=== PATIENT | female | born 1935 | race Caucasian/White ===

== ENCOUNTER 2016-09-30 13:03 | Inpatient (IN) | payer MEDICARE ==
[2016-09-30] MEDS ORDERED: DIATRIZOATE MEGLMINE/SODIUM 30 ML BOTTLE PO ONE (13:21)
[2016-09-30 13:40] LABS: ABG Draw Site Left Radial; ALLEN'S TEST PASS; BEb 6.1 (+/- 2); TCO2 32.6 MMOL/L (23-27)
--- NOTE | 2016-09-30 13:41 | EDPRACDOC ---
- General Information Chief Complaint: Chest Pain Stated Complaint: CHEST PAIN Time Seen by Provider: 09/30/16 13:15 Information Source: Patient, Family Mode of Arrival: Car Home Medications: Home Medications Albuterol Sulfate [Proair Hfa] 2 puff INH Q4-6H PRN 02/25/16 Alprazolam [Xanax] 0.5 mg PO BID PRN 02/25/16 Losartan Potassium [Cozaar] 50 mg PO DAILY 02/25/16 Omeprazole [Prilosec] 20 mg PO BID 02/25/16 Furosemide [Lasix] 20 mg PO DAILY PRN 04/29/16 Apixaban [Eliquis] 5 mg PO BID 09/30/16 Oxycodone HCl/Acetaminophen [Percocet 10-325 mg Tablet] 1 each PO Q8H PRN Allergies/Adverse Reactions: Allergies Allergy/AdvReac Type Severity Reaction Status Date / Time No Known Drug Allergies Allergy Unknown Verified 09/30/16 13:09 - History of Present Illness Onset: YEST HPI: PT HAS BEEN C/O CP FOR THE PAST FEW DAYS. PT ALSO C/O ABD PAIN. SHE HAD A HERNIA REPAIR IN FEBRUARY OF 2016. THE PT SAID THAT WHEN SHE STANDS UP, HER HERNIA SURGICAL SITE GETS REALLY HARD AND PAINFUL. THE PT SAID THAT SHE SAW DR. AMBRIZ WHO WANTED PT TO GET A CT SCAN. Chest Pain Location: Reports: Substernal Pain Radiation: Reports: None Symptoms Occur: Reports: Suddenly Cardiac Risk Factors: Reports: Smoker, Hypertension Cardiac History of: Reports: [place] Pain Description: Reports: Sharp, Stabbing Pain Severity: Mild Pain Worsens With: Reports: Nothing Pain Improves With: Reports: Nothing Associated Signs and Symptoms: Reports: SOB ED Past Medical History - Patient Medical History Cardiac History: Reports: Hypertension Respiratory History: Reports: COPD, Emphysema (she has no shortness of breath and does heavy work), Pulmonary Embolism GI/ History: Reports: Gastroesophageal Reflux Musculoskeletal History: Reports: Arthritis, Osteoarthritis Psychological History: Reports: Anxiety. Denies: Depression, Substance Use Disorder Systemic History: Denies: Diabetes, Hypothyroidism Surgical History: Reports: Hysterectomy, Hernia Surgery (02/25/16 Left inquinal hernia repair), Other (LEFT HIP) - Family Medical History Reports: Hypertension (Father), Cancer (Sister X 2, brother (lung)), Stroke ( brother), Cardiac Disorders (Father). Denies: Diabetes - Social Medical History Smoking Status: Light tobacco smoker (less than 5/day) (smoked 1ppd up until February of 2016, then quit; occasional smokes 1-2 cig/week now) Social History: Denies: Methadone Use, Other Substance Use ETOH: None Substance Abuse: None Lives In: Home EDM Review of Systems - Review of Systems ROS Negative Except as Marked: Yes All systems reviewed and were negative except as marked Constitutional: Weakness Respiratory: Shortness of Breath Cardiovascular: Chest Pain Gastrointestinal: Pain - Physical Exam Constitutional: No apparent distress, Alert (Awake), Other (CACHECTIC) Oriented to: Time, Person, Place Last recorded Vital Signs: Last Vital Signs Temp 98.6 F 09/30/16 13:05 Pulse 92 09/30/16 13:05 Resp 20 09/30/16 13:05 BP 185/81 H 09/30/16 13:05 Pulse Ox 95 09/30/16 13:05 Oxygen Pulse Oxygen Saturation 95 O2 Device Oxygen Flow Rate Fraction of Inspired Oxygen ( FIO2) - HEENT Head: Normal ( normocephalic) Eye Exam: Normal (PERRL, EOMI, Sclera white) Oropharynx: Normal (Pharynx:Moist without exudate,Gums-no swelling) ENT EAC: Normal TMJ: Normal Nose: No Symptoms Reported (septum midline) Neck: Normal (FROM, trachea at midline) - Respiratory/Cardiovascular Respiratory: Wheezes Cardiovascular: Normal (RRR without murmur, gallop or rub) - GI Auscultation: Normal (NABS) Palpation: Normal (Soft,No rebound or guarding, non distended) Tenderness: Mild, LLQ Guidry's Sign: Negative - Musculoskeletal Back: Normal (Non-Tender) Extremities: Normal (Normal tone, Pulses 2+ No cyanosis or edema, FROM) - Integumentary Skin: Normal, Warm, Dry Lymphatics: Normal (no adenopathy) - Neurologic Memory Impaired: Normal Motor Function: Normal (Normal tone, Pulses 2+ No cyanosis or edema, FROM) Cranial Nerve: Normal (CN II-X11 intact sensation, strength 5/5) Cerebellar: Normal Mood Description: Normal Thought: Coherent Perception: Normal - Action ASA given in the ED: No Aspirin therapy held due to: Other-specify below* (NOT CARDIAC) - Results 09/30/16 13:30 09/30/16 13:30 - EKG EKG #1 EKG Time: 13:19 -: Yes EKG interpreted by me Rate: bpm: 86 [place]: Normal Rhythm: NSR Block: None Hypertrophy: None ST: Normal Comparison: 04/29/16 - Diagnostic Imaging Chest Image interpreted by: Radiologist 1. Decreased patchy atelectasis or minimal pneumonia at the right lateral lung base. 2. Poor inspiration with interval minimal patchy atelectasis or pneumonia at the left lateral lung base. Other Image interpreted by: Radiologist ct chest/abd/pelvis: Negative for pulmonary embolus. Emboli seen on the prior chest CT have resolved. New mildly angulated fracture through the midbody of the sternum. Multiple thoracic spine compression fractures and compression fractures at all levels the lumbar spine. A new mild compression fracture of the superior endplate of T7 and some progression of vertebral body height loss and T8, T9 and L3. 0.6 cm right lower lobe pulmonary nodule is new since the prior studies. If the patient is at high risk for bronchogenic carcinoma, follow-up chest CT at 6-12 months is recommended. If the patient is at low risk for bronchogenic carcinoma, follow-up chest CT at 12 months is recommended. This recommendation follows the consensus statement: Guidelines for Management of Small Pulmonary Nodules Detected on CT Scans: A Statement from the Fleischner Society as published in Radiology 2005;237:395-400. Small left pleural effusions seen on the prior examination is decreased in size. Atherosclerosis. Hiatal hernia. Body wall and mesenteric edema compatible with anasarca, unchanged. No change in pelvic prolapse. - Departure Yes I personally saw and evaluated the patient. Disposition: Admit IP To This Hospital Condition: Fair Final Diagnosis: Acute respiratory failure with hypoxia, Bilateral pneumonia, Failure to thrive , Sternal fracture, compression fractures of multiple levels, Tobacco abuse Instructions: Chest Pain (ED) Education/Counseling Given To: Patient, Family Member Education/Counseling Given Regarding: Diagnosis, Treatment Referrals: Erich Huston MD [Primary Care Provider] - One Week Prescriptions: No Action Alprazolam [Xanax] 0.5 mg PO BID PRN PRN Reason: Anxiety Albuterol Sulfate [Proair Hfa] 2 puff INH Q4-6H PRN PRN Reason: Shortness Of Breath Omeprazole [Prilosec] 20 mg PO BID Losartan Potassium [Cozaar] 50 mg PO DAILY Furosemide [Lasix] 20 mg PO DAILY PRN PRN Reason: Edema Oxycodone HCl/Acetaminophen [Percocet 10-325 mg Tablet] 1 each PO Q8H PRN PRN Reason: Pain Apixaban [Eliquis] 5 mg PO BID Decision to Admit Time: 15:58 Decision to admit date: 09/30/16 Decision to admit: from ED - Physician Consulted Hospitalist Provider Called: Jovi Esquivel
[2016-09-30 13:43] LABS: AUTOMATED BASOPHIL 0.5 % (0-2); AUTOMATED EOSINOPHIL 0.7 % (0-5); AUTOMATED LYMPH 22.8 % (17-44); AUTOMATED MONOCYTE 11.6 % (3-10); AUTOMATED NEUTROPHIL 64.4 % (45-76); MPV 7.6 fL (7.4-10.4)
[2016-09-30 13:57] LABS: BLOOD UREA NITROGEN 14 MG/DL (7-17); CALC CORRECTED 9.8 MG/DL (8.4-10.2); CALCIUM 9.4 MG/DL (8.4-10.2); CALCULATED OSMOLALITY 266 MOs/Kg (270-290); CHLORIDE 99 mEq/L (98-107); GLUCOSE 89 mg/dL (70-99); SODIUM LEVEL 138 mEq/L (137-146); TOTAL PROTEIN 6.1 G/DL (6.3-8.2)
[2016-09-30] MEDS ORDERED: Pharmacy Review for Metformin - IV Contrast Given SCH ×3 (14:00)
[2016-09-30 14:04] LABS: PARTIAL THROMB. TIME 25.6 SEC (22-35)
[2016-09-30] MEDS ORDERED: MORPHINE 4 MG/ML INJECTION IV ONE ×2 (14:17→16:19)
[2016-09-30] MEDS ORDERED: ONDANSETRON HCL 4 MG/2 ML VIAL IV ONE (14:17)
[2016-09-30 14:30] LABS: LEUKOCYTES/URINE NEG (NEGATIVE); NITRITE/URINE NEG (NEGATIVE); URINE OCCULT BLOOD 1+ (NEG/TRACE)
--- NOTE | 2016-09-30 15:10 | DIRPT ---
CLINICAL DATA: Chest pain for the past few days. Abdominal pain. EXAM: PORTABLE CHEST 1 VIEW COMPARISON: 05/19/2016. FINDINGS: A small amount of patchy opacity at the right lateral lung base is less prominent. Decreased depth of inspiration. Interval minimal patchy opacity at the left lateral lung base. Interval enlarged cardiac silhouette, magnified by the poor inspiration and portable AP technique. The aorta remains tortuous and partially calcified. The previously seen small right pleural effusion is no longer visualized. Diffuse osteopenia. IMPRESSION: 1. Decreased patchy atelectasis or minimal pneumonia at the right lateral lung base. 2. Poor inspiration with interval minimal patchy atelectasis or pneumonia at the left lateral lung base. Electronically Signed By: Mane Castro M.D. On: 09/30/2016 15:07
[2016-09-30] MEDS ORDERED: Levofloxacin 500 mg/100 ml D5W 500 MG/100 ML RTU IV ONE (15:25)
--- NOTE | 2016-09-30 16:19 | DIRPT ---
CLINICAL DATA: Soreness in the center of the chest. Possible injury yesterday. Chest wall pain. History of rib fractures and pulmonary embolus. Cough and congestion for 1 month. Initial encounter. EXAM: CT ANGIOGRAPHY CHEST CT ABDOMEN AND PELVIS WITH CONTRAST TECHNIQUE: Multidetector CT imaging of the chest was performed using the standard protocol during bolus administration of intravenous contrast. Multiplanar CT image reconstructions and MIPs were obtained to evaluate the vascular anatomy. Multidetector CT imaging of the abdomen and pelvis was performed using the standard protocol during bolus administration of intravenous contrast. CONTRAST: 80 cc Isovue 370. COMPARISON: CT abdomen and pelvis 05/19/2016. CT chest 04/30/2016. FINDINGS: CTA CHEST FINDINGS Pulmonary emboli seen on the prior examination are no longer visualized. No pulmonary embolus is seen. There is a small left pleural effusion which is decreased in size since the prior chest CT. There is no right pleural effusion. Small pericardial effusion is not notably changed. Cardiomegaly is identified. Calcific aortic and coronary atherosclerosis is seen. Hiatal hernia is identified as on the prior examination. A 0.6 cm nodule in the right lower lobe on image 55 is new since the prior examination. No other nodule is seen. There is some emphysematous change in the apices. The patient has a new mildly angulated fracture through the body of the sternum. Remote bilateral rib fractures are seen. No acute rib fracture is identified. The patient also has multiple thoracic spine compression fractures. There has been some increase in vertebral body height loss at T12 since the prior examination. There has also been mild progression of vertebral body height loss at T8 and 9. The patient has a new mild superior endplate compression fracture of T7. No other new fractures identified. The patient's fractures result in marked exaggeration of thoracic kyphosis. CT ABDOMEN and PELVIS FINDINGS The gallbladder, liver, spleen, adrenal glands and kidneys are unremarkable. There is some atrophy of an otherwise unremarkable pancreas. Aortoiliac atherosclerosis without aneurysm is identified. Body wall and mesenteric edema is seen. Again seen is laxity of the pelvic floor with prolapse of the urinary bladder, unchanged. The small and large bowel are unremarkable. No focal fluid collection is seen. No lymphadenopathy is identified. Compression fractures at all levels of the lumbar spine are again seen. There has been some progression of vertebral body height loss of the inferior endplate of L3. No new fracture is identified. Fixation hardware in the left hip is noted. Review of the MIP images confirms the above findings. IMPRESSION: Negative for pulmonary embolus. Emboli seen on the prior chest CT have resolved. New mildly angulated fracture through the midbody of the sternum. Multiple thoracic spine compression fractures and compression fractures at all levels the lumbar spine. A new mild compression fracture of the superior endplate of T7 and some progression of vertebral body height loss and T8, T9 and L3. 0.6 cm right lower lobe pulmonary nodule is new since the prior studies. If the patient is at high risk for bronchogenic carcinoma, follow-up chest CT at 6-12 months is recommended. If the patient is at low risk for bronchogenic carcinoma, follow-up chest CT at 12 months is recommended. This recommendation follows the consensus statement: Guidelines for Management of Small Pulmonary Nodules Detected on CT Scans: A Statement from the Fleischner Society as published in Radiology 2005;237:395-400. Small left pleural effusions seen on the prior examination is decreased in size. Atherosclerosis. Hiatal hernia. Body wall and mesenteric edema compatible with anasarca, unchanged. No change in pelvic prolapse. Electronically Signed By: Sonny Ho M.D. On: 09/30/2016 16:16
[2016-09-30] MEDS ORDERED: GLUCAGON 1 MG VIAL SQ PRN (16:42)
[2016-09-30] MEDS ORDERED: Albuterol/Ipratropium Neb 3 ML NEB NEB PRN (16:42)
[2016-09-30] MEDS ORDERED: GLUCOSE (ORAL GEL) 15 GM TUBE PO PRN (16:42)
[2016-09-30] MEDS ORDERED: DEXTROSE 25 GM/50 ML PFS IV PRN (16:42)
[2016-09-30] MEDS ORDERED: FUROSEMIDE 20 MG TAB PO PRN (16:49)
[2016-09-30] MEDS ORDERED: Non-Formulary Medication ITEM (Oxycodone Hcl/Acetaminophen [Percocet 10-325 Mg Tablet] 1 PO PRN (16:49)
[2016-09-30] MEDS ORDERED: METHYLPREDNISOLONE 125 MG/2 ML VIAL IV ONE (16:53)
--- NOTE | 2016-09-30 17:10 | HISTPHYS ---
- Chief Complaint sob, cough, fevers, - History of Present Illness 81 yowf presented emergency room early on today for evaluation of more than 2 weeks history of progressive worsening difficulties breathing cough and phlegm production. Patient has noticed increased phlegm production few weeks ago, she was seen by PCP and despite finishing course of the antibiotic and prednisone she did not sustain asymptomatic improvement. Over past couple weeks she has noticed progressively worsening dyspnea, chest tightness wheezes and cough productive thick yellowish greenish sputum. Despite using her nebulizers with increased frequency she did not sustain asymptomatic improvement. She reports fairly intense sharp chest discomfort with coughing and taking deep breaths. She reports low-grade fevers chills and sweats as well. Her appetite and p.o. intake have been poor and she has been feeling very weak tired and very fatigued. Over past couple days her dyspnea has increased and early on this morning she has found herself gasping for air and finally family convinced her to be evaluated emergency room. Once in ED patient was found to be in moderate respiratory distress hypoxic tachypneic and tachycardic. Her initial PaO2 was only 54 on room air chest x-ray robert suspicion for right-sided pneumonia. Medical consultation was phoned in for inpatient treatment. - Medical History Cardiac History: Reports: Hypertension, Hypercholesterolemia, Valvular Heart Disease Respiratory History: Reports: COPD, Pneumonia, Emphysema (she has no shortness of breath and does heavy work), Pulmonary Embolism GI/ History: Reports: Renal Disease, Gastroesophageal Reflux Musculoskeletal History: Reports: Arthritis, Osteoarthritis, Other (Severe osteoporosis with multilevel compression fractures) Systemic History: Reports: No Significant History. Denies: Diabetes, Hypothyroidism Psychological History: Reports: Anxiety. Denies: Depression, Substance Use Disorder - Surgical History Reports: Hysterectomy, Hernia Surgery (02/25/16 Left inquinal hernia repair), Other (LEFT HIP,toe,) - Medictions/Allergies Allergies No Known Drug Allergies Allergy (Verified 09/30/16 13:09) Unknown Current Medication List: Reviewed Home Medications Albuterol Sulfate [Proair Hfa] 2 puff INH Q4-6H PRN 02/25/16 Alprazolam [Xanax] 0.5 mg PO BID PRN 02/25/16 Losartan Potassium [Cozaar] 50 mg PO DAILY 02/25/16 Omeprazole [Prilosec] 20 mg PO BID 02/25/16 Furosemide [Lasix] 20 mg PO DAILY PRN 04/29/16 Apixaban [Eliquis] 5 mg PO BID 09/30/16 Oxycodone HCl/Acetaminophen [Percocet 10-325 mg Tablet] 1 each PO Q8H PRN - Family History Reports: Hypertension (Father), Cancer (Sister X 2, brother (lung)), Stroke ( brother), Cardiac Disorders (Father). Denies: Diabetes - Social History Travel Outside of [place] in the Last 3 Months?: No Lives: With Family Smoking Status: Light tobacco smoker (less than 5/day) (smoked 1ppd up until February of 2016, then quit; occasional smokes 1-2 cig/week now) Social History: Denies: Methadone Use, Other Substance Use - Review of Systems Constitutional: Chills, Fever, Diaphoresis, Fatigue, Loss of Appetite, Weakness , Weight loss Eyes: No Symptoms Reported Ears: No Symptoms Reported Nose: No Symptoms Reported Mouth: No Symptoms Reported Throat/Neck: No Symptoms Reported Respiratory: Cough, Shortness of Breath, Wheezing, Sputum, Dyspnea Cardiovascular: Palpitations Gastrointestinal: Constipation, Heartburn Genitourinary: Frequency Neurological: Gait Difficulty, Numbness, Weakness Musculoskeletal:: Arthritis Integumentary: No Symptoms Reported Allergic/Immunologic: No Symptoms Reported Hematologic: No Symptoms Reported Endocrine: No Symptoms Reported Psychiatric: Anxiety - Physical Exam Vital Signs: Initial Vitals Temperature 98.6 F 09/30/16 13:05 Pulse Rate 92 09/30/16 13:05 Respiratory Rate 20 09/30/16 13:05 Blood Pressure 185/81 H 09/30/16 13:05 Pulse Oxygen Saturation 95 09/30/16 13:05 Constitutional: Alert, Distress, Restless, Other (Acutely ill and toxic- appearing, visibly short of breath with audible wheezes and rhonchi. Cachectic) Oriented to: Time, Person, Place - HEENT Head: Normal Eye: Normal Oropharynx: Normal ENT EAC: Normal TMJ: Normal Nose: No Symptoms Reported Respiratory: Accessory Muscle Use, Diminished, Retractions, Rhonchi, Tachypnea, Wheezes Cardiovascular: Normal, Systolic murmur - GI Auscultation: Normal Palpation: Normal Tenderness: Non tender Rectal Exam: Deferred - Exam Deferred: Yes - Musculoskeletal Back: Thoracic Step-off, Lumbar Step-off Extremities: Clubbing, Cyanosis Spine: limited range of motion - Integumentary Skin: Normal, Warm, Dry, Petechiae Lymphatics: Normal - Neurologic Memory Impaired: Normal Motor Function: Normal Cranial Nerve: Normal Cerebellar: Ataxia Mood Description: Anxious Perception: Normal - Focused CV Perfusion Exam Vital Signs: Last Vital Signs Temp 98.2 F 09/30/16 16:09 Pulse 94 09/30/16 17:04 Resp 18 09/30/16 17:04 BP 137/62 09/30/16 17:04 Pulse Ox 96 09/30/16 17:04 - Diagnostic Findings Allergies No Known Drug Allergies Allergy (Verified 09/30/16 13:09) Unknown Initial Vitals Temperature 98.6 F 09/30/16 13:05 Pulse Rate 92 09/30/16 13:05 Respiratory Rate 20 09/30/16 13:05 Blood Pressure 185/81 H 09/30/16 13:05 Pulse Oxygen Saturation 95 09/30/16 13:05 10/01/16 06:47 10/01/16 06:47 Abnormal Lab Results 09/30/16 10/01/16 10/01/16 23:01 05:05 06:15 RBC Hgb Hct MCH Seg Neuts % (Manual) Lymphocytes % (Manual) Absolute Lymphocytes pH 7.320 L pCO2 57.0 H HCO3 29.4 H Total CO2 31.1 H Glucose POC Capillary Glucose 210 H 175 H 10/01/16 10/01/16 10/01/16 06:47 06:47 11:01 RBC 3.42 L Hgb 11.2 L D Hct 33.7 L MCH 32.7 H Seg Neuts % (Manual) 89 H Lymphocytes % (Manual) 6 L Absolute Lymphocytes 0.34 L pH pCO2 HCO3 Total CO2 Glucose 196 H POC Capillary Glucose 216 H 10/01/16 15:59 RBC Hgb Hct MCH Seg Neuts % (Manual) Lymphocytes % (Manual) Absolute Lymphocytes pH pCO2 HCO3 Total CO2 Glucose POC Capillary Glucose 135 H Patient Name: JESSE CHUA LOC: ED : 1935 AGE: 81 Order Date:09/30/16 Date of Service:03/09 Report # [id number] Ord Physician: Elizabeth Martinez MD Exam # [id number] Emergency Physician: Elizabeth Martinez MD Exam(s): [id number] RAD/DG CHEST PORTABLE CLINICAL DATA: Chest pain for the past few days. Abdominal pain. EXAM: PORTABLE CHEST 1 VIEW COMPARISON: 05/19/2016. FINDINGS: A small amount of patchy opacity at the right lateral lung base is less prominent. Decreased depth of inspiration. Interval minimal patchy opacity at the left lateral lung base. Interval enlarged cardiac silhouette, magnified by the poor inspiration and portable AP technique. The aorta remains tortuous and partially calcified. The previously seen small right pleural effusion is no longer visualized. Diffuse osteopenia. IMPRESSION: 1. Decreased patchy atelectasis or minimal pneumonia at the right lateral lung base. 2. Poor inspiration with interval minimal patchy atelectasis or pneumonia at the left lateral lung base. Electronically Signed By: Mane Castro M.D. On: 09/30/2016 15:07 Electronically Signed By: Mane Castro MD Electronically Signed Date/Time: 510 Dictate - Assessment (1) Acute respiratory failure with hypoxia J96.01 - ACUTE RESPIRATORY FAILURE WITH HYPOXIA Acute Patient will be admitted to [facility] medical bed. Continue supplemental O2 nebulized bronchodilators, monitor pulmonary status. CT chest will be obtained, ABG will be obtained the morning. (2) Bilateral pneumonia J18.9 - PNEUMONIA, UNSPECIFIED ORGANISM Acute Present on Admission: Yes Qualifiers: Pneumonia type: due to unspecified organism Lung location: lower lobe of lung Qualified Code(s): J18.9 - Pneumonia, unspecified organism Given failure of outpatient therapy and underlying emphysema will use combination of IV Levaquin and IV Rocephin. Cultures will be obtained, adjust antibiotics based on culture results (3) COPD exacerbation J44.1 - CHRONIC OBSTRUCTIVE PULMONARY DISEASE W (ACUTE) EXACERBATION Acute Present on Admission: Yes Patient will receive nebulized bronchodilators and IV steroids. 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 CT chest pending to re-evaluated situation (5) Osteoporosis M81.0 - AGE-RELATED OSTEOPOROSIS W/O CURRENT PATHOLOGICAL FRACTURE Chronic Present on Admission: Yes Continue calcium and vitamin-D (6) Failure to thrive [id number] - Chronic Present on Admission: Yes Qualifiers: Failure to thrive age range: in adult Qualified Code(s): R62.7 - Adult failure to thrive Continue nutritional support (7) Hypertension I10 - ESSENTIAL (PRIMARY) HYPERTENSION Chronic Qualifiers: Hypertension type: essential hypertension Qualified Code(s): I10 - Essential (primary) hypertension Stable on meds (8) GERD (gastroesophageal reflux disease) K21.9 - GASTRO-ESOPHAGEAL REFLUX DISEASE WITHOUT ESOPHAGITIS Chronic Present on Admission: Yes Qualifiers: Esophagitis presence: without esophagitis Qualified Code(s): K21.9 - Gastro -esophageal reflux disease without esophagitis Continue PPI Case Care Discussed with: Patient, Family, Nursing Staff, Respiratory Therapy Total Time: 60 min . Critical Care: Yes Code: 291
[2016-09-30] MEDS: NS 1,000 ML IV SCH (18:28)
[2016-09-30] MEDS: REGULAR INSULIN 100 UNITS/ML - 3 ML VIAL SQ SCH ×2 (18:33→23:08)
[2016-09-30] MEDS: CEFTRIAXONE 1 GM in D5W 100 ML IV SCH (18:48)
[2016-09-30] MEDS ORDERED: Vaccine Screening Complete SCH (20:00)
[2016-09-30] MEDS: APIXABAN 5 MG TABLET PO SCH (20:06)
[2016-09-30] MEDS: OXYCODONE HCL 5 MG TABLET PO PRN (20:07)
[2016-09-30] MEDS: Albuterol/Ipratropium Neb 3 ML NEB NEB SCH (20:09)
[2016-09-30] MEDS: METHYLPREDNISOLONE 40 MG/1 ML VIAL IV SCH (23:08)
[2016-10-01] MEDS: Albuterol/Ipratropium Neb 3 ML NEB NEB SCH ×4 (02:13→21:20)
[2016-10-01] MEDS: OXYCODONE HCL 5 MG TABLET PO PRN ×2 (03:32→14:03)
[2016-10-01] MEDS: METHYLPREDNISOLONE 40 MG/1 ML VIAL IV SCH ×4 (05:32→23:27)
[2016-10-01] MEDS: REGULAR INSULIN 100 UNITS/ML - 3 ML VIAL SQ SCH ×4 (05:33→23:24)
[2016-10-01] MEDS: PANTOPRAZOLE 40 MG TAB PO SCH (05:33)
[2016-10-01 06:29] LABS: ALLEN'S TEST PASS; TCO2 31.1 MMOL/L (23-27)
[2016-10-01 06:31] LABS: ABG Draw Site Right Radial
[2016-10-01 07:37] LABS: MPV 7.9 fL (7.4-10.4)
[2016-10-01] MEDS ORDERED: PNEUMOCOCCAL 0.5 ML VIAL IM ONE (08:00)
[2016-10-01 08:03] LABS: BLOOD UREA NITROGEN 16 MG/DL (7-17); CALCIUM 9.1 MG/DL (8.4-10.2); CALCULATED OSMOLALITY 274 MOs/Kg (270-290); CHLORIDE 101 mEq/L (98-107); GLUCOSE 196 mg/dL (70-99); SODIUM LEVEL 139 mEq/L (137-146)
[2016-10-01] MEDS: LOSARTAN POTASSIUM 50 MG TAB PO SCH (08:08)
[2016-10-01] MEDS: APIXABAN 5 MG TABLET PO SCH ×2 (08:08→20:53)
[2016-10-01] MEDS: NS 1,000 ML IV SCH ×3 (08:08→20:53)
[2016-10-01 08:45] LABS: SEG NEUTROPHIL 89 % (45-76); TOTAL CELL COUNT 100
[2016-10-01 12:51] VITALS: BMI 14.3
[2016-10-01] MEDS: ALPRAZOLAM 0.5 MG TAB PO PRN (16:22)
[2016-10-01] MEDS: CEFTRIAXONE 1 GM in D5W 100 ML IV SCH (17:15)
--- NOTE | 2016-10-01 17:57 | GENMEDPROG ---
Subjective Note: Patient in bed responsive follows commands. Breathing better still tight in the chest wheezy still coughing producing fair amount thick sputum. No hemoptysis. Generally weak tired and very fatigued. P.o. intake poor. Notes Reviewed: Yes: Events from last night noted and discussed with Clinical Staff Current Medication List: Reviewed Currently: Reports: Cough, Wheezing, PIEDRA, SOB, Sputum, Tobacco Use/Hx, Constipation, Reflux Sx DVT Prophylaxis: Yes - Physical Examination Vital Signs and I&O: Last Vital Signs Temp 97.9 F 10/01/16 16:46 Pulse 114 10/01/16 16:46 Resp 18 10/01/16 16:46 BP 116/73 10/01/16 16:46 Pulse Ox 95 10/01/16 16:46 Oxygen Pulse Oxygen Saturation 95 O2 Device Nasal Cannula Oxygen Flow Rate 2 Fraction of Inspired Oxygen ( FIO2) Intake & Output 09/28/16 09/29/16 09/30/16 10/01/16 23:59 23:59 23:59 23:59 Intake Total 20 1806 Output Total 200 600 Balance -180 1206 Patient's weight 37.818 kg General: Alert, Oriented x3, Cooperative, Mild distress HEENT: Normal, PERRLA, EOMI, Anicteric Sclera Neck: Non-tender, Limited range of motion Lymphatics: Normal Respiratory: Accessory Muscle Use, Diminished, Retractions, Rhonchi, Tachypnea, Wheezes Cardiovascular: Regular rate, Normal S1, Normal S2 GI: Normal bowel sounds, Soft, Non tender, No hepatospenomegaly, No masses Extremities/Musculoskeletal: Clubbing, Cyanosis, DJD Skin: Warm,Dry and Intact, No rashes, No breakdown, No significant lesion Neurological: Normal speech, Normal tone Psych/Mental Status: Anxious Patient Name: JESSE CHUA Courtesy Copy to: Diagnostic Imaging Report [facility] [address] [place] [address] [phone] Diagnostic Imaging Services Courtesy Copy to: Diagnostic Imaging Report Patient Name: JESSE CHUA LOC: ED : 1935 AGE: 81 Order Date:09/30/16 Date of Service:03/09 Report # [id number] Ord Physician: Elizabeth Martinez MD Exam # [id number] Emergency Physician: Elizabeth Martinez MD Exam(s): [id number] CT/CT ANGIO CHEST CLINICAL DATA: Soreness in the center of the chest. Possible injury yesterday. Chest wall pain. History of rib fractures and pulmonary embolus. Cough and congestion for 1 month. Initial encounter. EXAM: CT ANGIOGRAPHY CHEST CT ABDOMEN AND PELVIS WITH CONTRAST TECHNIQUE: Multidetector CT imaging of the chest was performed using the standard protocol during bolus administration of intravenous contrast. Multiplanar CT image reconstructions and MIPs were obtained to evaluate the vascular anatomy. Multidetector CT imaging of the abdomen and pelvis was performed using the standard protocol during bolus administration of intravenous contrast. CONTRAST: 80 cc Isovue 370. COMPARISON: CT abdomen and pelvis 05/19/2016. CT chest 04/30/2016. FINDINGS: CTA CHEST FINDINGS Pulmonary emboli seen on the prior examination are no longer visualized. No pulmonary embolus is seen. There is a small left pleural effusion which is decreased in size since the prior chest CT. There is no right pleural effusion. Small pericardial effusion is not notably changed. Cardiomegaly is identified. Calcific aortic and coronary atherosclerosis is seen. Hiatal hernia is identified as on the prior examination. A 0.6 cm nodule in the right lower lobe on image 55 is new since the prior examination. No other nodule is seen. There is some emphysematous change in the apices. The patient has a new mildly angulated fracture through the body of the sternum. Remote bilateral rib fractures are seen. No acute rib fracture is identified. The patient also has multiple thoracic spine compression fractures. There has been some increase in vertebral body height loss at T12 since the prior examination. There has also been mild progression of vertebral body height loss at T8 and 9. The patient has a new mild superior endplate compression fracture of T7. No other new fractures identified. The patient's fractures result in marked exaggeration of thoracic kyphosis. CT ABDOMEN and PELVIS FINDINGS The gallbladder, liver, spleen, adrenal glands and kidneys are unremarkable. There is some atrophy of an otherwise unremarkable pancreas. Aortoiliac atherosclerosis without aneurysm is identified. Body wall and mesenteric edema is seen. Again seen is laxity of the pelvic floor with prolapse of the urinary bladder, unchanged. The small and large bowel are unremarkable. No focal fluid collection is seen. No lymphadenopathy is identified. Compression fractures at all levels of the lumbar spine are again seen. There has been some progression of vertebral body height loss of the inferior endplate of L3. No new fracture is identified. Fixation hardware in the left hip is noted. Review of the MIP images confirms the above findings. IMPRESSION: Negative for pulmonary embolus. Emboli seen on the prior chest CT have resolved. New mildly angulated fracture through the midbody of the sternum. Multiple thoracic spine compression fractures and compression fractures at all levels the lumbar spine. A new mild compression fracture of the superior endplate of T7 and some progression of vertebral body height loss and T8, T9 and L3. 0.6 cm right lower lobe pulmonary nodule is new since the prior studies. If the patient is at high risk for bronchogenic carcinoma, follow-up chest CT at 6-12 months is recommended. If the patient is at low risk for bronchogenic carcinoma, follow-up chest CT at 12 months is recommended. This recommendation follows the consensus statement: Guidelines for Management of Small Pulmonary Nodules Detected on CT Scans: A Statement from the Fleischner Society as published in Radiology 2005;237:395-400. Small left pleural effusions seen on the prior examination is decreased in size. Atherosclerosis. Hiatal hernia. Body wall and mesenteric edema compatible with anasarca, unchanged. No change in pelvic prolapse. Electronically Signed By: Sonny Ho M.D. On: 09/30/2016 16:16 Electronically Signed By: Sonny Castellanos MD Electronically Signed Date/Time: [id number] Dictate Date/Time: 09/30/16 1545 Technologist: Lissa Smith Transcribed By: Pablo Transcribed Date/Time: 09/30/16 1616 Lab/DI/Studies Reviewed: 10/01/16 06:47 10/01/16 06:47 Abnormal Lab Results 09/30/16 10/01/16 10/01/16 23:01 05:05 06:15 RBC Hgb Hct MCH Seg Neuts % (Manual) Lymphocytes % (Manual) Absolute Lymphocytes pH 7.320 L pCO2 57.0 H HCO3 29.4 H Total CO2 31.1 H Glucose POC Capillary Glucose 210 H 175 H 10/01/16 10/01/16 10/01/16 06:47 06:47 11:01 RBC 3.42 L Hgb 11.2 L D Hct 33.7 L MCH 32.7 H Seg Neuts % (Manual) 89 H Lymphocytes % (Manual) 6 L Absolute Lymphocytes 0.34 L pH pCO2 HCO3 Total CO2 Glucose 196 H POC Capillary Glucose 216 H 10/01/16 15:59 RBC Hgb Hct MCH Seg Neuts % (Manual) Lymphocytes % (Manual) Absolute Lymphocytes pH pCO2 HCO3 Total CO2 Glucose POC Capillary Glucose 135 H - Assessment (1) Acute respiratory failure with hypoxia Acute J96.01 - ACUTE RESPIRATORY FAILURE WITH HYPOXIA Comment/Plan: Continue O2 nebs and pulmonary toilet. Slowly improving (2) Bilateral pneumonia Acute J18.9 - PNEUMONIA, UNSPECIFIED ORGANISM Qualifiers: Pneumonia type: due to unspecified organism Lung location: lower lobe of lung Qualified Code(s): J18.9 - Pneumonia, unspecified organism Comment/Plan: Continue IV Levaquin and IV Rocephin. Monitor cultures. (3) COPD exacerbation Acute J44.1 - CHRONIC OBSTRUCTIVE PULMONARY DISEASE W (ACUTE) EXACERBATION Comment/Plan: Patient will receive nebulized bronchodilators and IV steroids. Continue mucolytics and aggressive pulmonary toilet (4) Pulmonary embolism and infarction Chronic I26.99 - OTHER PULMONARY EMBOLISM WITHOUT ACUTE COR PULMONALE Comment/Plan: Continue liquids. CT chest showed resolution of PE (5) Osteoporosis Chronic M81.0 - AGE-RELATED OSTEOPOROSIS W/O CURRENT PATHOLOGICAL FRACTURE Comment/Plan: Continue calcium and vitamin-D (6) Failure to thrive Chronic [id number] - Qualifiers: Failure to thrive age range: in adult Qualified Code(s): R62.7 - Adult failure to thrive Comment/Plan: Continue nutritional support (7) Hypertension Chronic I10 - ESSENTIAL (PRIMARY) HYPERTENSION Qualifiers: Hypertension type: essential hypertension Qualified Code(s): I10 - Essential (primary) hypertension Comment/Plan: Stable on meds (8) GERD (gastroesophageal reflux disease) Chronic K21.9 - GASTRO-ESOPHAGEAL REFLUX DISEASE WITHOUT ESOPHAGITIS Qualifiers: Esophagitis presence: without esophagitis Qualified Code(s): K21.9 - Gastro -esophageal reflux disease without esophagitis Comment/Plan: Continue PPI Case Care Discussed with: Patient, Family, Nursing Staff, Respiratory Therapy, Landscape Supervisor Education/Counseling Given To: Patient Education/Counseling Given Regarding: Diagnosis, Treatment, Prognosis, Follow Up Total Time: 50 min . Critical Care: No Code: 64531 (12+)
[2016-10-02] MEDS: Albuterol/Ipratropium Neb 3 ML NEB NEB SCH ×4 (01:55→23:00)
[2016-10-02] MEDS: OXYCODONE HCL 5 MG TABLET PO PRN ×4 (02:02→22:48)
[2016-10-02] MEDS: METHYLPREDNISOLONE 40 MG/1 ML VIAL IV SCH ×3 (05:24→17:59)
[2016-10-02] MEDS: PANTOPRAZOLE 40 MG TAB PO SCH (05:24)
[2016-10-02] MEDS: REGULAR INSULIN 100 UNITS/ML - 3 ML VIAL SQ SCH ×3 (05:24→17:28)
[2016-10-02] MEDS: APIXABAN 5 MG TABLET PO SCH ×2 (10:13→22:49)
[2016-10-02] MEDS: LOSARTAN POTASSIUM 50 MG TAB PO SCH (10:13)
[2016-10-02] MEDS: NS 1,000 ML IV SCH ×2 (11:03→17:28)
[2016-10-02] MEDS: CEFTRIAXONE 1 GM in D5W 100 ML IV SCH (17:58)
[2016-10-02] MEDS ORDERED: Levofloxacin 750 mg/150 ml D5W 750 MG/150 ML RTU IV SCH (18:00)
--- NOTE | 2016-10-02 20:01 | GENMEDPROG ---
Subjective Note: Patient in bed responsive follows commands. Breathing slowly improving, still coughing producing fair amount thick sputum no hemoptysis. Still tight in the chest and wheezy. P.o. intake better. Notes Reviewed: Yes: Events from last night noted and discussed with Clinical Staff Current Medication List: Reviewed Currently: Reports: Cough, Wheezing, PIEDRA, SOB, Sputum, Tobacco Use/Hx, Constipation, Reflux Sx DVT Prophylaxis: Yes - Physical Examination Vital Signs and I&O: Last Vital Signs Temp 98.0 F 10/02/16 18:00 Pulse 109 10/02/16 18:00 Resp 18 10/02/16 18:00 BP 139/88 10/02/16 18:00 Pulse Ox 98 10/02/16 14:00 Oxygen Pulse Oxygen Saturation 98 O2 Device Nasal Cannula Oxygen Flow Rate 2 Fraction of Inspired Oxygen ( FIO2) Intake & Output 09/29/16 09/30/16 10/01/16 10/02/16 23:59 23:59 23:59 23:59 Intake Total 20 2790 2390 Output Total 062 605 2285 Balance -180 1865 1390 Patient's weight 37.818 kg General: Alert, Oriented x3, Cooperative, Mild distress HEENT: Normal, PERRLA, EOMI, Anicteric Sclera Neck: Non-tender, Limited range of motion Lymphatics: Normal Respiratory: Accessory Muscle Use, Diminished, Retractions, Rhonchi, Tachypnea, Wheezes Cardiovascular: Regular rate, Normal S1, Normal S2 GI: Normal bowel sounds, Soft, Non tender, No hepatospenomegaly, No masses Extremities/Musculoskeletal: Clubbing, Cyanosis, DJD Skin: Warm,Dry and Intact, No rashes, No breakdown, No significant lesion Neurological: Normal speech, Normal tone Psych/Mental Status: Anxious Lab/DI/Studies Reviewed: Allergies No Known Drug Allergies Allergy (Verified 09/30/16 13:09) Unknown 10/01/16 06:47 10/01/16 06:47 - Assessment (1) Acute respiratory failure with hypoxia Acute J96.01 - ACUTE RESPIRATORY FAILURE WITH HYPOXIA Comment/Plan: Continue O2 nebs and pulmonary toilet. Slow clinical improvement on maximal pulmonary therapy. (2) Bilateral pneumonia Acute J18.9 - PNEUMONIA, UNSPECIFIED ORGANISM Qualifiers: Pneumonia type: due to unspecified organism Lung location: lower lobe of lung Qualified Code(s): J18.9 - Pneumonia, unspecified organism Comment/Plan: Continue IV Levaquin and IV Rocephin. Monitor cultures. (3) COPD exacerbation Acute J44.1 - CHRONIC OBSTRUCTIVE PULMONARY DISEASE W (ACUTE) EXACERBATION Comment/Plan: Patient will receive nebulized bronchodilators and IV steroids. Continue mucolytics and aggressive pulmonary toilet. Wean off IV steroids (4) Pulmonary embolism and infarction Chronic I26.99 - OTHER PULMONARY EMBOLISM WITHOUT ACUTE COR PULMONALE Comment/Plan: Continue liquids. CT chest showed resolution of PE (5) Osteoporosis Chronic M81.0 - AGE-RELATED OSTEOPOROSIS W/O CURRENT PATHOLOGICAL FRACTURE Comment/Plan: Continue calcium and vitamin-D (6) Failure to thrive Chronic [id number] - Qualifiers: Failure to thrive age range: in adult Qualified Code(s): R62.7 - Adult failure to thrive Comment/Plan: Continue nutritional support (7) Hypertension Chronic I10 - ESSENTIAL (PRIMARY) HYPERTENSION Qualifiers: Hypertension type: essential hypertension Qualified Code(s): I10 - Essential (primary) hypertension Comment/Plan: Stable on meds (8) GERD (gastroesophageal reflux disease) Chronic K21.9 - GASTRO-ESOPHAGEAL REFLUX DISEASE WITHOUT ESOPHAGITIS Qualifiers: Esophagitis presence: without esophagitis Qualified Code(s): K21.9 - Gastro -esophageal reflux disease without esophagitis Comment/Plan: Continue PPI (9) Sternal fracture Acute S22.20XA - UNSP FRACTURE OF STERNUM, INIT ENCNTR FOR CLOSED FRACTURE Qualifiers: Encounter type: initial encounter Sternal location: body of sternum Fracture type: closed Qualified Code(s): S22.22XA - Fracture of body of sternum, initial encounter for closed fracture Comment/Plan: Continue narcotic analgesics on as needed basis. (10) Pulmonary nodule Acute R91.1 - SOLITARY PULMONARY NODULE Comment/Plan: Patient and daughter were advised on 0.6 cm right lower lobe pulmonary nodule new since prior studies. Patient was advised that she should have another CT scan of the chest in 3 months Case Care Discussed with: Patient, Family, Nursing Staff, Spiral Weaver Education/Counseling Given To: Patient Education/Counseling Given Regarding: Diagnosis, Treatment, Prognosis, Follow Up Total Time: 45 min . Critical Care: No Code: 58584 (12+)
[2016-10-02] MEDS: ALPRAZOLAM 0.5 MG TAB PO PRN (21:34)
[2016-10-03] MEDS: REGULAR INSULIN 100 UNITS/ML - 3 ML VIAL SQ SCH ×4 (00:03→16:34)
[2016-10-03] MEDS: METHYLPREDNISOLONE 40 MG/1 ML VIAL IV SCH ×4 (00:52→18:44)
[2016-10-03] MEDS: NS 1,000 ML IV SCH ×3 (01:26→15:31)
[2016-10-03] MEDS: Albuterol/Ipratropium Neb 3 ML NEB NEB SCH ×4 (02:21→20:31)
[2016-10-03] MEDS: PANTOPRAZOLE 40 MG TAB PO SCH (05:43)
[2016-10-03] MEDS: OXYCODONE HCL 5 MG TABLET PO PRN ×3 (05:47→22:59)
[2016-10-03] MEDS: LOSARTAN POTASSIUM 50 MG TAB PO SCH (08:33)
[2016-10-03] MEDS: APIXABAN 5 MG TABLET PO SCH (08:33)
--- NOTE | 2016-10-03 09:37 | GENMEDPROG ---
Subjective Note: Patient in chair looks and feels better. Still coughing producing very small amount of sputum no hemoptysis. Ambulating with mild exertional dyspnea. Still fair amount of anterior chest wall pain. Notes Reviewed: Yes: Events from last night noted and discussed with Clinical Staff Current Medication List: Reviewed Currently: Reports: Cough, Wheezing, PIEDRA, SOB, Sputum, Tobacco Use/Hx, Constipation, Reflux Sx DVT Prophylaxis: Yes - Physical Examination Vital Signs and I&O: Last Vital Signs Temp 98.3 F 10/03/16 06:00 Pulse 91 10/03/16 08:32 Resp 20 10/03/16 06:00 BP 132/71 10/03/16 08:32 Pulse Ox 96 10/03/16 08:03 Oxygen Pulse Oxygen Saturation 96 O2 Device Nasal Cannula Oxygen Flow Rate 2 Fraction of Inspired Oxygen ( FIO2) Intake & Output 09/30/16 10/01/16 10/02/16 10/03/16 23:59 23:59 23:59 23:59 Intake Total 20 2790 2390 1379 Output Total 760 643 0788 650 Balance -180 1865 1390 729 Patient's weight 37.818 kg General: Alert, Oriented x3, Cooperative, Mild distress HEENT: Normal, PERRLA, EOMI, Anicteric Sclera Neck: Non-tender, Limited range of motion Lymphatics: Normal Respiratory: Accessory Muscle Use, Diminished, Retractions, Rhonchi, Tachypnea, Wheezes Cardiovascular: Regular rate, Normal S1, Normal S2 GI: Normal bowel sounds, Soft, Non tender, No hepatospenomegaly, No masses Extremities/Musculoskeletal: Clubbing, Cyanosis, DJD Skin: Warm,Dry and Intact, No rashes, No breakdown, No significant lesion Neurological: Normal speech, Normal tone Psych/Mental Status: Anxious Lab/DI/Studies Reviewed: 10/01/16 06:47 10/01/16 06:47 - Assessment (1) Acute respiratory failure with hypoxia Acute J96.01 - ACUTE RESPIRATORY FAILURE WITH HYPOXIA Comment/Plan: Continue O2 nebs and pulmonary toilet. Slow clinical improvement on maximal pulmonary therapy. Weaned off oxygen as tolerated. Increase activity. (2) Bilateral pneumonia Acute J18.9 - PNEUMONIA, UNSPECIFIED ORGANISM Qualifiers: Pneumonia type: due to unspecified organism Lung location: lower lobe of lung Qualified Code(s): J18.9 - Pneumonia, unspecified organism Comment/Plan: Continue IV Levaquin and IV Rocephin. Monitor cultures. (3) COPD exacerbation Acute J44.1 - CHRONIC OBSTRUCTIVE PULMONARY DISEASE W (ACUTE) EXACERBATION Comment/Plan: Patient will receive nebulized bronchodilators and IV steroids. Continue mucolytics and aggressive pulmonary toilet. Wean off IV steroids (4) Pulmonary embolism and infarction Chronic I26.99 - OTHER PULMONARY EMBOLISM WITHOUT ACUTE COR PULMONALE Comment/Plan: Continue liquids. CT chest showed resolution of PE. At this point patient has completed 6 months of anticoagulation and will discontinue liquids. (5) Osteoporosis Chronic M81.0 - AGE-RELATED OSTEOPOROSIS W/O CURRENT PATHOLOGICAL FRACTURE Comment/Plan: Continue calcium and vitamin-D (6) Failure to thrive Chronic [id number] - Qualifiers: Failure to thrive age range: in adult Qualified Code(s): R62.7 - Adult failure to thrive Comment/Plan: Continue nutritional support (7) Hypertension Chronic I10 - ESSENTIAL (PRIMARY) HYPERTENSION Qualifiers: Hypertension type: essential hypertension Qualified Code(s): I10 - Essential (primary) hypertension Comment/Plan: Stable on meds (8) GERD (gastroesophageal reflux disease) Chronic K21.9 - GASTRO-ESOPHAGEAL REFLUX DISEASE WITHOUT ESOPHAGITIS Qualifiers: Esophagitis presence: without esophagitis Qualified Code(s): K21.9 - Gastro -esophageal reflux disease without esophagitis Comment/Plan: Continue PPI (9) Sternal fracture Acute S22.20XA - UNSP FRACTURE OF STERNUM, INIT ENCNTR FOR CLOSED FRACTURE Qualifiers: Encounter type: initial encounter Sternal location: body of sternum Fracture type: closed Qualified Code(s): S22.22XA - Fracture of body of sternum, initial encounter for closed fracture Comment/Plan: Continue narcotic analgesics on as needed basis. (10) Pulmonary nodule Acute R91.1 - SOLITARY PULMONARY NODULE Comment/Plan: Patient and daughter were advised on 0.6 cm right lower lobe pulmonary nodule new since prior studies. Patient was advised that she should have another CT scan of the chest in 3 months Case Care Discussed with: Patient, Consultants, Family, Nursing Staff, Oil Truck Driver Education/Counseling Given To: Patient Education/Counseling Given Regarding: Diagnosis, Treatment, Prognosis, Follow Up Total Time: 45 min . Critical Care: No Code: 04957 (12+)
[2016-10-03] MEDS ORDERED: FUROSEMIDE 20 MG/2 ML VIAL IV ONE (10:00)
[2016-10-03] MEDS: CEFTRIAXONE 1 GM in D5W 100 ML IV SCH (18:47)
--- NOTE | 2016-10-03 19:43 | GENMEDPROG ---
Chief Complaint: CROSS COVER NOTE 10/03/161849 S: NURSE CALLED. PATIENT'S HEART RATE WENT TO 150. Subjective Note: CROSS COVER NOTE 10/03/161849 S: NURSE CALLED. PATIENT'S HEART RATE WENT TO 150. Notes Reviewed: Yes: Events from last night noted and discussed with Clinical Staff Current Medication List: Reviewed Currently: Reports: Tobacco Use/Hx, Reflux Sx DVT Prophylaxis: Yes - Physical Examination Vital Signs and I&O: Last Vital Signs Temp 97.9 F 10/03/16 18:00 Pulse 150 H 10/03/16 18:35 Resp 20 10/03/16 18:00 BP 133/76 10/03/16 18:00 Pulse Ox 97 10/03/16 18:00 Oxygen Pulse Oxygen Saturation 97 O2 Device Nasal Cannula Oxygen Flow Rate 2 Fraction of Inspired Oxygen ( FIO2) Intake & Output 10/01/16 10/02/16 10/03/16 10/04/16 05:59 05:59 05:59 05:59 Intake Total 926 1884 2390 2372 Output Total 439 188 6594 1550 Balance 476 1009 1290 822 Patient's weight 37.818 kg 37.818 kg General: Alert, Oriented x3, Cooperative, No acute distress HEENT: Normal, PERRLA, EOMI, Anicteric Sclera Neck: Non-tender, Limited range of motion Lymphatics: Normal Respiratory: Diminished. negative: Accessory Muscle Use, Rales, Retractions, Rhonchi, Tachypnea, Wheezes Cardiovascular: Regular rate, Normal S1, Normal S2 GI: Normal bowel sounds, Soft, Non tender, No hepatospenomegaly, No masses Extremities/Musculoskeletal: Clubbing, DJD. negative: Edema, Cyanosis Skin: Warm,Dry and Intact, No rashes, No breakdown (EXCEPT superficial erythema on back at site of severe scoliosis. Also on left 5th toe mild crusting from previous site where she hit her toe.), No significant lesion (Feet with mild erythema and ecchymoses (chronic).) Neurological: Normal speech, Normal tone, Cranial nerves 3-12 NL, Reflexes 2+, Strength (4/5 generalized.). negative: Contractures Psych/Mental Status: Appropriate, Other (Oriented.) Mild tenderness over sternum at site of fracture. Lab/DI/Studies Reviewed: Laboratory Tests 09/30/16 09/30/16 09/30/16 13:30 13:30 13:30 WBC 7.5 RBC 4.00 L Hgb 13.2 D Hct 39.0 MCV 98 MCH 33.0 H MCHC 33.9 RDW 14.3 Plt Count 243 MPV 7.6 Neut % (Auto) 64.4 Lymph % (Auto) 22.8 [place] % (Auto) 11.6 H Eos % (Auto) 0.7 Baso % (Auto) 0.5 Absolute Neuts (auto) 4.80 Absolute Lymphs (auto) 1.65 Seg Neuts % (Manual) Band Neutrophils % Lymphocytes % (Manual) Absolute Neutrophils Absolute Lymphocytes Toxic Granulation Platelet Estimate RBC Morphology PT 10.5 INR 1.0 APTT 25.6 Puncture Site pH pCO2 pO2 HCO3 Total CO2 Base Excess FiO2 % Specimen Drawn By Sodium 138 Potassium 4.0 Chloride 99 Carbon Dioxide 30 Anion Gap 13 BUN 14 Creatinine 0.50 L Estimated GFR (MDRD) > 60 Glucose 89 POC Capillary Glucose Calculated Osmolality 266 L Lactic Acid Calcium 9.4 Corrected Calcium 9.8 Magnesium Total Bilirubin 0.7 AST 20 ALT 34 Alkaline Phosphatase 91 Troponin I < 0.01 Total Protein 6.1 L Albumin 3.6 TSH Urine Color Urine Clarity Urine pH Ur Specific [place] Urine Protein Urine Glucose (UA) Urine Ketones Urine Occult Blood Urine Nitrite Urine Bilirubin Urine Urobilinogen Ur Leukocyte Esterase Urine RBC Urine WBC Ur Epithelial Cells Urine Mucus 09/30/16 09/30/16 09/30/16 13:30 13:30 13:35 WBC RBC Hgb Hct MCV MCH MCHC RDW Plt Count MPV Neut % (Auto) Lymph % (Auto) [place] % (Auto) Eos % (Auto) Baso % (Auto) Absolute Neuts (auto) Absolute Lymphs (auto) Seg Neuts % (Manual) Band Neutrophils % Lymphocytes % (Manual) Absolute Neutrophils Absolute Lymphocytes Toxic Granulation Platelet Estimate RBC Morphology PT INR APTT Puncture Site Left radial pH 7.440 pCO2 46.0 H pO2 54.0 L HCO3 31.2 H Total CO2 32.6 H Base Excess 6.1 H FiO2 % 21% Specimen Drawn By [place] Sodium Potassium Chloride Carbon Dioxide Anion Gap BUN Creatinine Estimated GFR (MDRD) Glucose POC Capillary Glucose Calculated Osmolality Lactic Acid 0.8 Calcium Corrected Calcium Magnesium Total Bilirubin AST ALT Alkaline Phosphatase Troponin I Total Protein Albumin TSH 4.49 Urine Color Urine Clarity Urine pH Ur Specific [place] Urine Protein Urine Glucose (UA) Urine Ketones Urine Occult Blood Urine Nitrite Urine Bilirubin Urine Urobilinogen Ur Leukocyte Esterase Urine RBC Urine WBC Ur Epithelial Cells Urine Mucus 09/30/16 09/30/16 09/30/16 13:55 16:48 19:05 WBC RBC Hgb Hct MCV MCH MCHC RDW Plt Count MPV Neut % (Auto) Lymph % (Auto) [place] % (Auto) Eos % (Auto) Baso % (Auto) Absolute Neuts (auto) Absolute Lymphs (auto) Seg Neuts % (Manual) Band Neutrophils % Lymphocytes % (Manual) Absolute Neutrophils Absolute Lymphocytes Toxic Granulation Platelet Estimate RBC Morphology PT INR APTT Puncture Site pH pCO2 pO2 HCO3 Total CO2 Base Excess FiO2 % Specimen Drawn By Sodium Potassium Chloride Carbon Dioxide Anion Gap BUN Creatinine Estimated GFR (MDRD) Glucose POC Capillary Glucose Calculated Osmolality Lactic Acid Calcium Corrected Calcium Magnesium Total Bilirubin AST ALT Alkaline Phosphatase Troponin I < 0.01 < 0.01 Total Protein Albumin TSH Urine Color Yellow Urine Clarity Clear Urine pH 6.0 Ur Specific [place] 1.015 Urine Protein Neg Urine Glucose (UA) Neg Urine Ketones Neg Urine Occult Blood 1+ H Urine Nitrite Neg Urine Bilirubin Neg Urine Urobilinogen 2 H Ur Leukocyte Esterase Neg Urine RBC 2-5 Urine WBC 2-5 Ur Epithelial Cells 2+ Urine Mucus Occ 09/30/16 10/01/16 10/01/16 23:01 05:05 06:15 WBC RBC Hgb Hct MCV MCH MCHC RDW Plt Count MPV Neut % (Auto) Lymph % (Auto) [place] % (Auto) Eos % (Auto) Baso % (Auto) Absolute Neuts (auto) Absolute Lymphs (auto) Seg Neuts % (Manual) Band Neutrophils % Lymphocytes % (Manual) Absolute Neutrophils Absolute Lymphocytes Toxic Granulation Platelet Estimate RBC Morphology PT INR APTT Puncture Site Right radial pH 7.320 L pCO2 57.0 H pO2 97.0 HCO3 29.4 H Total CO2 31.1 H Base Excess 2.0 FiO2 % 1.5lpm nc Specimen Drawn By [place] Sodium Potassium Chloride Carbon Dioxide Anion Gap BUN Creatinine Estimated GFR (MDRD) Glucose POC Capillary Glucose 210 H 175 H Calculated Osmolality Lactic Acid Calcium Corrected Calcium Magnesium Total Bilirubin AST ALT Alkaline Phosphatase Troponin I Total Protein Albumin TSH Urine Color Urine Clarity Urine pH Ur Specific [place] Urine Protein Urine Glucose (UA) Urine Ketones Urine Occult Blood Urine Nitrite Urine Bilirubin Urine Urobilinogen Ur Leukocyte Esterase Urine RBC Urine WBC Ur Epithelial Cells Urine Mucus 10/01/16 10/01/16 10/01/16 06:47 06:47 11:01 WBC 5.6 RBC 3.42 L Hgb 11.2 L D Hct 33.7 L MCV 99 MCH 32.7 H MCHC 33.1 RDW 14.0 Plt Count 203 MPV 7.9 Neut % (Auto) Cancelled Lymph % (Auto) Cancelled [place] % (Auto) Cancelled Eos % (Auto) Cancelled Baso % (Auto) Cancelled Absolute Neuts (auto) Cancelled Absolute Lymphs (auto) Cancelled Seg Neuts % (Manual) 89 H Band Neutrophils % 5 Lymphocytes % (Manual) 6 L Absolute Neutrophils 5.26 Absolute Lymphocytes 0.34 L Toxic Granulation Tr Platelet Estimate Norm RBC Morphology 1+ polychrom PT INR APTT Puncture Site pH pCO2 pO2 HCO3 Total CO2 Base Excess FiO2 % Specimen Drawn By Sodium 139 Potassium 4.5 Chloride 101 Carbon Dioxide 31 Anion Gap 12 BUN 16 Creatinine 0.60 Estimated GFR (MDRD) > 60 Glucose 196 H POC Capillary Glucose 216 H Calculated Osmolality 274 Lactic Acid Calcium 9.1 Corrected Calcium Magnesium 1.70 Total Bilirubin AST ALT Alkaline Phosphatase Troponin I Total Protein Albumin TSH Urine Color Urine Clarity Urine pH Ur Specific [place] Urine Protein Urine Glucose (UA) Urine Ketones Urine Occult Blood Urine Nitrite Urine Bilirubin Urine Urobilinogen Ur Leukocyte Esterase Urine RBC Urine WBC Ur Epithelial Cells Urine Mucus 10/01/16 10/01/16 10/02/16 15:59 23:02 05:21 WBC RBC Hgb Hct MCV MCH MCHC RDW Plt Count MPV Neut % (Auto) Lymph % (Auto) [place] % (Auto) Eos % (Auto) Baso % (Auto) Absolute Neuts (auto) Absolute Lymphs (auto) Seg Neuts % (Manual) Band Neutrophils % Lymphocytes % (Manual) Absolute Neutrophils Absolute Lymphocytes Toxic Granulation Platelet Estimate RBC Morphology PT INR APTT Puncture Site pH pCO2 pO2 HCO3 Total CO2 Base Excess FiO2 % Specimen Drawn By Sodium Potassium Chloride Carbon Dioxide Anion Gap BUN Creatinine Estimated GFR (MDRD) Glucose POC Capillary Glucose 135 H 123 H 120 H Calculated Osmolality Lactic Acid Calcium Corrected Calcium Magnesium Total Bilirubin AST ALT Alkaline Phosphatase Troponin I Total Protein Albumin TSH Urine Color Urine Clarity Urine pH Ur Specific [place] Urine Protein Urine Glucose (UA) Urine Ketones Urine Occult Blood Urine Nitrite Urine Bilirubin Urine Urobilinogen Ur Leukocyte Esterase Urine RBC Urine WBC Ur Epithelial Cells Urine Mucus 10/02/16 10/02/16 10/02/16 11:19 16:33 20:50 WBC RBC Hgb Hct MCV MCH MCHC RDW Plt Count MPV Neut % (Auto) Lymph % (Auto) [place] % (Auto) Eos % (Auto) Baso % (Auto) Absolute Neuts (auto) Absolute Lymphs (auto) Seg Neuts % (Manual) Band Neutrophils % Lymphocytes % (Manual) Absolute Neutrophils Absolute Lymphocytes Toxic Granulation Platelet Estimate RBC Morphology PT INR APTT Puncture Site pH pCO2 pO2 HCO3 Total CO2 Base Excess FiO2 % Specimen Drawn By Sodium Potassium Chloride Carbon Dioxide Anion Gap BUN Creatinine Estimated GFR (MDRD) Glucose POC Capillary Glucose 123 H 97 122 H Calculated Osmolality Lactic Acid Calcium Corrected Calcium Magnesium Total Bilirubin AST ALT Alkaline Phosphatase Troponin I Total Protein Albumin TSH Urine Color Urine Clarity Urine pH Ur Specific [place] Urine Protein Urine Glucose (UA) Urine Ketones Urine Occult Blood Urine Nitrite Urine Bilirubin Urine Urobilinogen Ur Leukocyte Esterase Urine RBC Urine WBC Ur Epithelial Cells Urine Mucus 10/02/16 10/03/16 10/03/16 23:51 05:42 10:55 WBC RBC Hgb Hct MCV MCH MCHC RDW Plt Count MPV Neut % (Auto) Lymph % (Auto) [place] % (Auto) Eos % (Auto) Baso % (Auto) Absolute Neuts (auto) Absolute Lymphs (auto) Seg Neuts % (Manual) Band Neutrophils % Lymphocytes % (Manual) Absolute Neutrophils Absolute Lymphocytes Toxic Granulation Platelet Estimate RBC Morphology PT INR APTT Puncture Site pH pCO2 pO2 HCO3 Total CO2 Base Excess FiO2 % Specimen Drawn By Sodium Potassium Chloride Carbon Dioxide Anion Gap BUN Creatinine Estimated GFR (MDRD) Glucose POC Capillary Glucose 116 H 110 H 122 H Calculated Osmolality Lactic Acid Calcium Corrected Calcium Magnesium Total Bilirubin AST ALT Alkaline Phosphatase Troponin I Total Protein Albumin TSH Urine Color Urine Clarity Urine pH Ur Specific [place] Urine Protein Urine Glucose (UA) Urine Ketones Urine Occult Blood Urine Nitrite Urine Bilirubin Urine Urobilinogen Ur Leukocyte Esterase Urine RBC Urine WBC Ur Epithelial Cells Urine Mucus 10/03/16 10/03/16 10/03/16 16:01 19:20 19:20 WBC 10.4 RBC 3.43 L Hgb 11.2 L Hct 34.3 L MCV 100 H MCH 32.6 H MCHC 32.6 L RDW 14.4 Plt Count 243 MPV 7.8 Neut % (Auto) Lymph % (Auto) [place] % (Auto) Eos % (Auto) Baso % (Auto) Absolute Neuts (auto) Absolute Lymphs (auto) Seg Neuts % (Manual) Band Neutrophils % Lymphocytes % (Manual) Absolute Neutrophils Absolute Lymphocytes Toxic Granulation Platelet Estimate RBC Morphology PT INR APTT Puncture Site pH pCO2 pO2 HCO3 Total CO2 Base Excess FiO2 % Specimen Drawn By Sodium Potassium Chloride Carbon Dioxide Anion Gap BUN Creatinine Estimated GFR (MDRD) Glucose POC Capillary Glucose 115 H Calculated Osmolality Lactic Acid Calcium Corrected Calcium Magnesium Total Bilirubin AST ALT Alkaline Phosphatase Troponin I Total Protein Albumin TSH Cancelled Urine Color Urine Clarity Urine pH Ur Specific [place] Urine Protein Urine Glucose (UA) Urine Ketones Urine Occult Blood Urine Nitrite Urine Bilirubin Urine Urobilinogen Ur Leukocyte Esterase Urine RBC Urine WBC Ur Epithelial Cells Urine Mucus 10/03/16 19:20 WBC RBC Hgb Hct MCV MCH MCHC RDW Plt Count MPV Neut % (Auto) Lymph % (Auto) [place] % (Auto) Eos % (Auto) Baso % (Auto) Absolute Neuts (auto) Absolute Lymphs (auto) Seg Neuts % (Manual) Band Neutrophils % Lymphocytes % (Manual) Absolute Neutrophils Absolute Lymphocytes Toxic Granulation Platelet Estimate RBC Morphology PT INR APTT Puncture Site pH pCO2 pO2 HCO3 Total CO2 Base Excess FiO2 % Specimen Drawn By Sodium Potassium Chloride Carbon Dioxide Anion Gap BUN Creatinine Estimated GFR (MDRD) Glucose POC Capillary Glucose Calculated Osmolality Lactic Acid Calcium Corrected Calcium Magnesium Total Bilirubin AST ALT Alkaline Phosphatase Troponin I Cancelled Total Protein Albumin TSH Urine Color Urine Clarity Urine pH Ur Specific [place] Urine Protein Urine Glucose (UA) Urine Ketones Urine Occult Blood Urine Nitrite Urine Bilirubin Urine Urobilinogen Ur Leukocyte Esterase Urine RBC Urine WBC Ur Epithelial Cells Urine Mucus Case Care Discussed with: Patient, Nursing Staff
[2016-10-03 19:44] LABS: MPV 7.8 fL (7.4-10.4)
[2016-10-03 19:58] LABS: BLOOD UREA NITROGEN 17 MG/DL (7-17); CALC CORRECTED 10.2 MG/DL (8.4-10.2); CALCULATED OSMOLALITY 271 MOs/Kg (270-290); CHLORIDE 103 mEq/L (98-107); GLUCOSE 111 mg/dL (70-99); SODIUM LEVEL 139 mEq/L (137-146); TOTAL PROTEIN 5.3 G/DL (6.3-8.2)
[2016-10-03 20:28] LABS: hTSH 2.67 uIU/mL (0.5-4.67)
[2016-10-03] MEDS: ALPRAZOLAM 0.5 MG TAB PO PRN (22:59)
[2016-10-04] MEDS: REGULAR INSULIN 100 UNITS/ML - 3 ML VIAL SQ SCH ×3 (00:27→11:53)
[2016-10-04] MEDS: Albuterol/Ipratropium Neb 3 ML NEB NEB SCH ×2 (02:08→08:20)
[2016-10-04] MEDS: METHYLPREDNISOLONE 40 MG/1 ML VIAL IV SCH ×2 (03:13→08:59)
[2016-10-04] MEDS: PANTOPRAZOLE 40 MG TAB PO SCH (05:34)
[2016-10-04] MEDS: NS 1,000 ML IV SCH (05:34)
[2016-10-04] MEDS: OXYCODONE HCL 5 MG TABLET PO PRN (05:41)
[2016-10-04] MEDS: LOSARTAN POTASSIUM 50 MG TAB PO SCH (08:59)
--- NOTE | 2016-10-04 09:11 | PCM.PULM ---
Chief Complaint: Acute respiratory failure with hypxia Bilateral pneumonia COPD exacerbation Pulmonary nodules Failure to thrive Tobacco use Patient in bed alert and responsive family at bedside today. Breathing is fair on nasal cannula oxygen. Patient ambulating with minimal dyspnea on exertions Current complaints: SOB,PIEDRA,cough, sputum. No chest pain reported Medication list reviewed:yes Notes reviewed:yes, Events from last night noted and discussed with Clinical Staff DVT prophylaxis:yes - Physical Examination Vital Signs and I&O: Last Vital Signs Temp 98.6 F 10/04/16 04:36 Pulse 98 10/04/16 04:36 Resp 18 10/04/16 04:36 BP 131/83 10/04/16 04:36 Pulse Ox 97 10/04/16 08:00 Oxygen Pulse Oxygen Saturation 97 O2 Device Nasal Cannula Oxygen Flow Rate 1 Fraction of Inspired Oxygen ( FIO2) Intake & Output 10/01/16 10/02/16 10/03/16 10/04/16 23:59 23:59 23:59 23:59 Intake Total 2790 2390 2372 1315 Output Total 925 1000 1850 400 Balance 1865 1390 522 915 Patient's weight 37.818 kg 37.818 kg 37.762 kg General: Alert, Oriented x3, Cooperative, No acute distress, Fatigue Respiratory: Diminished Cardiovascular: Regular rate, Regular rate and rhythm, Normal S1, No Gallops, Rubs/Murmurs, Normal S2, Good Pedal Pulses GI: Normal bowel sounds, Soft, Non tender, No hepatospenomegaly, No masses Extremities/Musculoskeletal: Normal pulses Skin: Warm,Dry and Intact, No rashes, No significant lesion, Other (upper back skin tear) Neurological: Normal speech, Normal tone, Cranial nerves 3-12 NL Psych/Mental Status: Appropriate Result Diagrams: 10/03/16 19:20 10/04/16 09:50 Labs (last 24 hours): Laboratory Results - last 24 hr 10/03/16 10/03/16 10/03/16 19:20 19:20 19:20 WBC RBC Hgb Hct MCV MCH MCHC RDW Plt Count MPV Sodium 139 Potassium 3.7 Chloride 103 Carbon Dioxide 30 Anion Gap 10 BUN 17 Creatinine 0.50 L Estimated GFR (MDRD) > 60 Glucose 111 H POC Capillary Glucose Calculated Osmolality 271 Calcium 9.0 Corrected Calcium 10.2 Magnesium 1.70 Total Bilirubin 0.2 AST 18 ALT 30 Alkaline Phosphatase 67 Troponin I 0.04 Total Protein 5.3 L Albumin 2.8 L TSH Cancelled 2.67 Blood Type A POSITIVE Antibody Screen Negative 10/03/16 10/03/16 10/03/16 19:20 22:20 23:58 WBC RBC Hgb Hct MCV MCH MCHC RDW Plt Count MPV Sodium Potassium Chloride Carbon Dioxide Anion Gap BUN Creatinine Estimated GFR (MDRD) Glucose POC Capillary Glucose 114 H Calculated Osmolality Calcium Corrected Calcium Magnesium Total Bilirubin AST ALT Alkaline Phosphatase Troponin I Cancelled 0.04 Total Protein Albumin TSH Blood Type Antibody Screen 10/04/16 04:38 WBC RBC Hgb Hct MCV MCH MCHC RDW Plt Count MPV Sodium Potassium Chloride Carbon Dioxide Anion Gap BUN Creatinine Estimated GFR (MDRD) Glucose POC Capillary Glucose 117 H Calculated Osmolality Calcium Corrected Calcium Magnesium Total Bilirubin AST ALT Alkaline Phosphatase Troponin I Total Protein Albumin TSH Blood Type Antibody Screen Lab/DI/Studies Reviewed: Microbiology 09/30/16 23:10 Sputum Gram Stain - Final 09/30/16 23:10 Sputum Sputum Culture - Final Normal oral/respiratory lalo present Medications Albuterol/Ipratropium (Duoneb) 3 ml NEB Q2H PRN PRN Reason: Wheezing Stop: 10/14/16 16:59 Alprazolam (Xanax) 0.5 mg PO BID PRN PRN Reason: Anxiety Stop: 10/14/16 16:48 Last Admin: 10/03/16 22:59 Dose: 0.5 mg Bisacodyl (Dulcolax) 10 mg MS NOW ONE Stop: 10/04/16 09:43 Ceftriaxone Sodium 1 gm/ (Dextrose) 100 mls @ 200 mls/hr IV Q24H [facility] Stop: 10/07/16 17:59 Last Admin: 10/03/16 18:47 Dose: 200 mls/hr Insulin Human Regular (Humulin R) 0 units SQ Q6 LEXY PRN Reason: Protocol Stop: 10/14/16 16:59 Last Admin: 10/04/16 05:28 Dose: Not Given Levofloxacin/Dextrose (Levaquin 750 Mg) 750 mg in 150 mls @ 100 mls/hr IV Q48H [facility] Stop: 10/09/16 17:59 Last Admin: 10/02/16 18:59 Dose: 100 mls/hr Losartan Potassium (Cozaar) 50 mg PO DAILY [facility] Stop: 10/15/16 08:59 Last Admin: 10/04/16 08:59 Dose: 50 mg Methylprednisolone Sodium Succinate (Solu-Medrol) 40 mg IV Q8H [facility] Stop: 10/17/16 16:59 Last Admin: 10/04/16 08:59 Dose: 40 mg Oxycodone HCl (Oxycodone Immediate Release (Oxyir)) 10 mg PO Q6H PRN PRN Reason: Moderate to Severe Pain Stop: 10/16/16 16:59 Last Admin: 10/04/16 05:41 Dose: 10 mg Pantoprazole Sodium (Protonix) 40 mg PO 0600 [facility] Stop: 10/14/16 16:59 Last Admin: 10/04/16 05:34 Dose: 40 mg Sodium Chloride (Normal Saline) 1,000 mls @ 75 mls/hr IV Q24H [facility] Stop: 10/14/16 16:59 Last Admin: 10/04/16 05:34 Dose: 75 mls/hr - Assessment/Plan (1) Acute respiratory failure with hypoxia Acute J96.01 - ACUTE RESPIRATORY FAILURE WITH HYPOXIA Comment/Plan: Patient has been improving significantly has been doing fairly well on p.o. prednisone and will be able to go home with prednisone taper I will be glad to see the patient in my office within the next 1 week or so (2) Bilateral pneumonia Acute J18.9 - PNEUMONIA, UNSPECIFIED ORGANISM due to unspecified organism lower lobe of lung J18.9 - Pneumonia, unspecified organism Comment/Plan: Continue the current treatment patient is relatively stable at this time to go home (3) COPD exacerbation Acute J44.1 - CHRONIC OBSTRUCTIVE PULMONARY DISEASE W (ACUTE) EXACERBATION (4) Pulmonary nodule Acute R91.1 - SOLITARY PULMONARY NODULE Comment/Plan: Patient to have a follow-up CT scan in 6 months or so would follow the patient closely (5) Tobacco abuse Acute Z72.0 - TOBACCO USE Comment/Plan: Patient was instructed in no uncertain terms to quit smoking (6) Failure to thrive Chronic [id number] - in adult R62.7 - Adult failure to thrive Comment/Plan: Continue the current supportive care
[2016-10-04] MEDS ORDERED: BISACODYL 10 MG SUPP PR ONE (10:00)
[2016-10-04 10:05] LABS: BLOOD UREA NITROGEN 18 MG/DL (7-17); CALCIUM 8.6 MG/DL (8.4-10.2); CALCULATED OSMOLALITY 272 MOs/Kg (270-290); CHLORIDE 105 mEq/L (98-107); GLUCOSE 128 mg/dL (70-99); SODIUM LEVEL 139 mEq/L (137-146)
[2016-10-04 10:16] VITALS: BP 137/90; PULSE 87; TEMP 97.5
--- NOTE | 2016-10-04 11:40 | PCM.DCS92 ---
- Final/Secondary Discharge Diagnosis (1) Acute respiratory failure with hypoxia Acute J96.01 - ACUTE RESPIRATORY FAILURE WITH HYPOXIA Present on Admission: Yes Comment: Clinically improved and stable for discharge. Qualify for home O2 which has been delivered to her house (2) Bilateral pneumonia Acute J18.9 - PNEUMONIA, UNSPECIFIED ORGANISM Present on Admission: Yes due to unspecified organism lower lobe of lung J18.9 - Pneumonia, unspecified organism Comment: Continue finish course of p.o. Levaquin. (3) COPD exacerbation Acute J44.1 - CHRONIC OBSTRUCTIVE PULMONARY DISEASE W (ACUTE) EXACERBATION Present on Admission: Yes Comment: Continue and finish course of prednisone, continue nebulized bronchodilators. (4) Pulmonary embolism and infarction Chronic I26.99 - OTHER PULMONARY EMBOLISM WITHOUT ACUTE COR PULMONALE Present on Admission: Yes Comment: CT chest showed resolution of PE, patient completed 6 months of therapy with Eliquis. Giving vascular problems she will continue at home on baby aspirin (5) Osteoporosis Chronic M81.0 - AGE-RELATED OSTEOPOROSIS W/O CURRENT PATHOLOGICAL FRACTURE Present on Admission: Yes Comment: Continue calcium and vitamin-D . Recommended once a year Prolia infusion (6) Failure to thrive Chronic [id number] - Present on Admission: Yes in adult R62.7 - Adult failure to thrive Comment: Continue nutritional support (7) Hypertension Chronic I10 - ESSENTIAL (PRIMARY) HYPERTENSION essential hypertension I10 - Essential (primary) hypertension Comment: Stable on meds (8) GERD (gastroesophageal reflux disease) Chronic K21.9 - GASTRO-ESOPHAGEAL REFLUX DISEASE WITHOUT ESOPHAGITIS Present on Admission: Yes without esophagitis K21.9 - Gastro-esophageal reflux disease without esophagitis Comment: Continue PPI (9) Sternal fracture Acute S22.20XA - UNSP FRACTURE OF STERNUM, INIT ENCNTR FOR CLOSED FRACTURE initial encounter body of sternum closed S22.22XA - Fracture of body of sternum, initial encounter for closed fracture Comment: Continue narcotic analgesics on as needed basis. (10) Pulmonary nodule Acute R91.1 - SOLITARY PULMONARY NODULE Comment: Patient and daughter were advised on 0.6 cm right lower lobe pulmonary nodule new since prior studies. Patient was advised that she should have another CT scan of the chest in 3 months Discharge Disposition: Discharge w/ Home Health Discharge Condition: Improved Cognitive Discharge Status: Unimpaired Fuctional Discharge Status: Walker Assistance Physician Follow up/Referrals: Erich Huston MD [Primary Care Provider] - One Week Edenilson Persaud MD [Staff Physician] - Listed Time Home Medications / New Prescriptions: New Aspirin [Aspirin EC] 81 mg PO DAILY #120 tablet. Albuterol/Ipratropium Neb [Duoneb] 3 ml NEB Q6H #120 nebu Levofloxacin [Levaquin] 750 mg PO DAILY #5 tablet Guaifenesin [Mucinex] 1,200 mg PO BID #20 tbmp.12hr Prednisone 10 mg PO DAILY #30 tab.ds.pk Continue Alprazolam [Xanax] 0.5 mg PO BID PRN PRN Reason: Anxiety Albuterol Sulfate [Proair Hfa] 2 puff INH Q4-6H PRN PRN Reason: Shortness Of Breath Omeprazole [Prilosec] 20 mg PO BID Losartan Potassium [Cozaar] 50 mg PO DAILY Furosemide [Lasix] 20 mg PO DAILY PRN PRN Reason: Edema Oxycodone HCl/Acetaminophen [Percocet 10-325 mg Tablet] 1 each PO Q8H PRN PRN Reason: Pain Discontinued Apixaban [Eliquis] 5 mg PO BID O2 Device: Nasal Cannula Oxygen to be used after Discharge: Continuous Diet at Discharge: As Tolerated, Heart Healthy, Low Salt, High Fiber Activity: As Tolerated, Limited, No Heavy Lifting Call Office For: Worsening Symptoms, Fever over 101 F Discontinue use of:: Alcohol, All Illegal Substances, All Types of Tobacco - DC Summary Notes Hospital Course Note:: Discharge summary on patient named JESSE CHUA admitted to [facility] on 09/30/16 by Jovi Esquivel MD. Date of discharge is []. Patient has initially presented to emergency room on the September 30 for evaluation of progressive worsening difficulties breathing cough and phlegm production. Despite receiving course of antibiotics and prednisone as outpatient her pulmonary status has deteriorated she has developed progressive worsening difficulties breathing chest tightness wheezes and greenish phlegm production. Please refer the admission for further details. Upon arrival in ED patient was found to be in moderate respiratory distress hypoxic tachypneic and tachycardic her initial PaO2 was 54, chest x-ray showed right-sided pneumonia. Patient was admitted to general medical floor, outpatient regimen for chronic medical conditions was continued. Treatment broad-spectrum antibiotics was instituted, due to significant bronchorrhea with bronchospasm she required nebulized bronchodilators and IV steroids. During hospital stay she has been seen by her personal surface water manager Dr. Persaud and pulmonary regimen was optimized. CT chest was obtained on this admission which showed no PE and resolution of prior PE, fracture throughout mid body of sternum, multiple thoracic compression fractures and 0.6 cm right lower lobe pulmonary nodule. She was gradually weaned off IV steroids and her activity level was advanced. Patient has qualified for home O2 with exercise pulse ox being 86%. Patient continued to require narcotic analgesics for persistent chest wall and back pain. Overall throughout the hospital stay she has remained hemodynamically stable. Blood culture showed no growth and sputum culture grew normal respiratory lalo. She was mildly anemic however her hemoglobin has remained stable above 11. Renal function electrolytes remained all within normal limits. It was felt that by October 04 patient has reached maximum benefit of inpatient therapy and in clinically improved condition she has been discharged home to the care of the family her PCP and surface water manager. Patient daughter was kept abreast on clinical progression and results of all the testing in the hospital on regular daily basis Total Time: 40 min . Code: 27083 (>30min.) - Physical Exam Vital Signs: Last Vital Signs Temp 97.5 F 10/04/16 10:00 Pulse 87 10/04/16 10:00 Resp 18 10/04/16 10:00 BP 137/90 10/04/16 10:00 Pulse Ox 97 10/04/16 10:00 Oxygen Pulse Oxygen Saturation 97 O2 Device Nasal Cannula Oxygen Flow Rate 1 Fraction of Inspired Oxygen ( FIO2) Constitutional: No apparent distress, Alert, Restless, Other (Acutely ill and toxic-appearing, visibly short of breath with audible wheezes and rhonchi. Cachectic) Oriented to: Time, Person, Place - HEENT Head: Normal Eye: Normal Oropharynx: Normal ENT EAC: Normal TMJ: Normal Nose: No Symptoms Reported - Respiratory/Cardiovascular Respiratory: Diminished, Rhonchi. negative: Accessory Muscle Use, Rales, Retractions, Tachypnea, Wheezes Cardiovascular: Normal, Systolic murmur - GI Auscultation: Normal Palpation: Normal Tenderness: Non tender Rectal Exam: Deferred - Exam Deferred: Yes - Musculoskeletal Back: Thoracic Step-off, Lumbar Step-off Extremities: Clubbing, Cyanosis - Integumentary Skin: Normal, Warm, Dry Lymphatics: Normal - Neurologic Memory Impaired: Normal Motor Function: Normal, Abnormal Cranial Nerve: Normal Cerebellar: Ataxia Mood Description: Anxious Thought: Coherent Perception: Normal - Other Exam Other Exam Findings: Allergies No Known Drug Allergies Allergy (Verified 09/30/16 13:09) Unknown Last Vital Signs Temp 97.5 F 10/04/16 10:00 Pulse 87 10/04/16 10:00 Resp 18 10/04/16 10:00 BP 137/90 10/04/16 10:00 Pulse Ox 97 10/04/16 10:00 10/03/16 19:20 10/04/16 09:50 Abnormal Lab Results 10/03/16 10/03/16 10/03/16 16:01 19:20 19:20 RBC 3.43 L Hgb 11.2 L Hct 34.3 L MCV 100 H MCH 32.6 H MCHC 32.6 L BUN Creatinine 0.50 L Glucose 111 H POC Capillary Glucose 115 H Total Protein 5.3 L Albumin 2.8 L 10/03/16 10/04/16 10/04/16 23:58 04:38 09:50 RBC Hgb Hct MCV MCH MCHC BUN 18 H Creatinine Glucose 128 H POC Capillary Glucose 114 H 117 H Total Protein Albumin 10/04/16 11:02 RBC Hgb Hct MCV MCH MCHC BUN Creatinine Glucose POC Capillary Glucose 121 H Total Protein Albumin Discharge Home Medication List Albuterol Sulfate [Proair Hfa] 2 puff INH Q4-6H PRN 02/25/16 [History Confirmed 09/30/16] Alprazolam [Xanax] 0.5 mg PO BID PRN 02/25/16 [History Confirmed 09/30/16] Losartan Potassium [Cozaar] 50 mg PO DAILY 02/25/16 [History Confirmed 09/30/16] Omeprazole [Prilosec] 20 mg PO BID 02/25/16 [History Confirmed 09/30/16] Furosemide [Lasix] 20 mg PO DAILY PRN 04/29/16 [History Confirmed 09/30/16] Oxycodone HCl/Acetaminophen [Percocet 10-325 mg Tablet] 1 each PO Q8H PRN [History Confirmed 09/30/16] Albuterol/Ipratropium Neb [Duoneb] 3 ml NEB Q6H #120 nebu 10/04/16 [Rx] Aspirin [Aspirin EC] 81 mg PO DAILY #120 tablet. 10/04/16 [Rx] Guaifenesin [Mucinex] 1,200 mg PO BID #20 tbmp.12hr 10/04/16 [Rx] Levofloxacin [Levaquin] 750 mg PO DAILY #5 tablet 10/04/16 [Rx] Prednisone 10 mg PO DAILY #30 tab.ds.pk 10/04/16 [Rx] New Discharge Medications (Rx) Albuterol/Ipratropium Neb [Duoneb] 3 ml NEB Q6H #120 nebu 10/04/16 [Rx] Aspirin [Aspirin EC] 81 mg PO DAILY #120 tablet. 10/04/16 [Rx] Guaifenesin [Mucinex] 1,200 mg PO BID #20 tbmp.12hr 10/04/16 [Rx] Levofloxacin [Levaquin] 750 mg PO DAILY #5 tablet 10/04/16 [Rx] Prednisone 10 mg PO DAILY #30 tab.ds.pk 10/04/16 [Rx] Home Medications Albuterol Sulfate [Proair Hfa] 2 puff INH Q4-6H PRN 02/25/16 Alprazolam [Xanax] 0.5 mg PO BID PRN 02/25/16 Losartan Potassium [Cozaar] 50 mg PO DAILY 02/25/16 Omeprazole [Prilosec] 20 mg PO BID 02/25/16 Furosemide [Lasix] 20 mg PO DAILY PRN 04/29/16 Oxycodone HCl/Acetaminophen [Percocet 10-325 mg Tablet] 1 each PO Q8H PRN Albuterol/Ipratropium Neb [Duoneb] 3 ml NEB Q6H #120 nebu 10/04/16 Aspirin [Aspirin EC] 81 mg PO DAILY #120 tablet. 10/04/16 Guaifenesin [Mucinex] 1,200 mg PO BID #20 tbmp.12hr 10/04/16 Levofloxacin [Levaquin] 750 mg PO DAILY #5 tablet 10/04/16 Prednisone 10 mg PO DAILY #30 tab.ds.pk 10/04/16 Microbiology 09/30/16 23:10 Sputum Gram Stain - Final 09/30/16 23:10 Sputum Sputum Culture - Final Normal oral/respiratory lalo present 09/30/16 13:55 Urine - Clean Catch - Midstream Urine Culture - Final Contaminated: Multiple organisms present. Patient Name: JESSE CHUA Courtesy Copy to: Diagnostic Imaging Report [facility] [address] [facility] [address] [id number] [phone] Diagnostic Imaging Services Courtesy Copy to: Diagnostic Imaging Report Patient Name: JESSE CHUA LOC: ED : 1935 AGE: 81 Order Date:09/30/16 Date of Service:03/09 Report # [id number] Ord Physician: Elizabeth Martinez MD Exam # [id number] Emergency Physician: Elizabeth Martinez MD Exam(s): [id number] CT/CT ANGIO CHEST CLINICAL DATA: Soreness in the center of the chest. Possible injury yesterday. Chest wall pain. History of rib fractures and pulmonary embolus. Cough and congestion for 1 month. Initial encounter. EXAM: CT ANGIOGRAPHY CHEST CT ABDOMEN AND PELVIS WITH CONTRAST TECHNIQUE: Multidetector CT imaging of the chest was performed using the standard protocol during bolus administration of intravenous contrast. Multiplanar CT image reconstructions and MIPs were obtained to evaluate the vascular anatomy. Multidetector CT imaging of the abdomen and pelvis was performed using the standard protocol during bolus administration of intravenous contrast. CONTRAST: 80 cc Isovue 370. COMPARISON: CT abdomen and pelvis 05/19/2016. CT chest 04/30/2016. FINDINGS: CTA CHEST FINDINGS Pulmonary emboli seen on the prior examination are no longer visualized. No pulmonary embolus is seen. There is a small left pleural effusion which is decreased in size since the prior chest CT. There is no right pleural effusion. Small pericardial effusion is not notably changed. Cardiomegaly is identified. Calcific aortic and coronary atherosclerosis is seen. Hiatal hernia is identified as on the prior examination. A 0.6 cm nodule in the right lower lobe on image 55 is new since the prior examination. No other nodule is seen. There is some emphysematous change in the apices. The patient has a new mildly angulated fracture through the body of the sternum. Remote bilateral rib fractures are seen. No acute rib fracture is identified. The patient also has multiple thoracic spine compression fractures. There has been some increase in vertebral body height loss at T12 since the prior examination. There has also been mild progression of vertebral body height loss at T8 and 9. The patient has a new mild superior endplate compression fracture of T7. No other new fractures identified. The patient's fractures result in marked exaggeration of thoracic kyphosis. CT ABDOMEN and PELVIS FINDINGS The gallbladder, liver, spleen, adrenal glands and kidneys are unremarkable. There is some atrophy of an otherwise unremarkable pancreas. Aortoiliac atherosclerosis without aneurysm is identified. Body wall and mesenteric edema is seen. Again seen is laxity of the pelvic floor with prolapse of the urinary bladder, unchanged. The small and large bowel are unremarkable. No focal fluid collection is seen. No lymphadenopathy is identified. Compression fractures at all levels of the lumbar spine are again seen. There has been some progression of vertebral body height loss of the inferior endplate of L3. No new fracture is identified. Fixation hardware in the left hip is noted. Review of the MIP images confirms the above findings. IMPRESSION: Negative for pulmonary embolus. Emboli seen on the prior chest CT have resolved. New mildly angulated fracture through the midbody of the sternum. Multiple thoracic spine compression fractures and compression fractures at all levels the lumbar spine. A new mild compression fracture of the superior endplate of T7 and some progression of vertebral body height loss and T8, T9 and L3. 0.6 cm right lower lobe pulmonary nodule is new since the prior studies. If the patient is at high risk for bronchogenic carcinoma, follow-up chest CT at 6-12 months is recommended. If the patient is at low risk for bronchogenic carcinoma, follow-up chest CT at 12 months is recommended. This recommendation follows the consensus statement: Guidelines for Management of Small Pulmonary Nodules Detected on CT Scans: A Statement from the Fleischner Society as published in Radiology 2005;237:395-400. Small left pleural effusions seen on the prior examination is decreased in size. Atherosclerosis. Hiatal hernia. Body wall and mesenteric edema compatible with anasarca, unchanged. No change in pelvic prolapse. Electronically Signed By: Sonny Ho M.D. On: 09/30/2016 16:16 Electronically Signed By: Sonny Castellanos MD Electronically Signed Date/Time: [id number] Dictate Date/Time: 09/30/16 1545 Technologist: Lissa Smith Transcribed By: Pablo Transcribed Date/Time: 09/30/16 1614
--- NOTE | 2016-10-05 16:19 | HIMCONS ---
DATE OF CONSULT: REQUESTING PHYSICIAN: Jovi Esquivel MD REASON FOR CONSULTATION: Lung nodule and respiratory failure. HISTORY OF PRESENT ILLNESS: This patient is an 81-year-old lady, well known to me from previous office and hospital visits. Apparently, the patient was admitted 3 days ago with 2 weeks history of worsening coughing phlegm, shortness of breath. She received a course of antibiotics and prednisone, did not improve and eventually ended up in the hospital ER from where she was admitted. She has been coughing up yellowish-green phlegm and has been having significant chest discomfort when she takes a deep breath. Complaining of chills and occasional fever, weakness, tiredness. She was found to be in moderate respiratory distress. At the time of admission, was tachypneic and tachycardic, and therefore was admitted. She is feeling much better at this time. PAST MEDICAL HISTORY: Significant for hypertension, hypercholesterolemia, valvular heart disease, COPD, history of pulmonary embolism, history of renal disease, gastroesophageal reflux disease, arthritis, osteoporosis, and multiple fractures, anxiety. SURGICAL HISTORY: Significant for hysterectomy, hernia surgery, and left hip and toe surgeries. MEDICATIONS: Medications in the chart were noted. ALLERGIES: THE PATIENT HAS NO KNOWN DRUG ALLERGIES. FAMILY HISTORY: Significant for father having cardiac disorder and hypertension. Brother had a stroke and lung cancer. SOCIAL HISTORY: The patient has been a smoker most of her adult life. No history of alcohol or drug abuse. REVIEW OF SYSTEMS: Entire review of systems is negative except for as mentioned in the history of present illness. PHYSICAL EXAMINATION: VITAL SIGNS: Temperature 98.5 degrees Fahrenheit, pulse is 91, respiratory rate 18, blood pressure 144/78, pulse ox 98%. CHEST: Decreased bilateral air entry, scattered rhonchi, no wheezing. HEART: S1, S2. Tachycardia. EXTREMITIES: No clubbing, cyanosis, or edema. ABDOMEN: Soft and nontender. Bowel sounds present. Hepatosplenomegaly is absent. NEURO: Grossly nonfocal. The patient is moving all extremities. LABORATORY DATA: White count 5.6, hemoglobin is 11.2, hematocrit 33.7, platelets are 203. Blood gas on 8th; pH was 7.32, pCO2 of 57, PO2 of 97 on 1.5 liters of oxygen. Sodium 139, potassium 4.5, chloride 101, CO2 of 31, BUN is 16, creatinine 0.6, glucose 196. IMAGING REPORTS: CT scan of chest was seen personally. The patient seems to have multiple spinal and sternal fractures with barrel-shaped chest and the right lower lobe 6 millimeter nodule, calcified tracheobronchial tree with bronchiectasis was noted and significant hiatal hernia was noted as well. IMPRESSION: 1. [id number] respiratory failure, possible chronic obstructive pulmonary disease with exacerbation. 2. Right lower lobe nodule. 3. Bronchiectasis. 4. History of pulmonary embolism and multiple fractures. PLAN: The patient has been on nebulizers, has been placed on Rocephin and Levaquin and has been doing fairly well. She is on Solu-Medrol 40 mg IV q.8 hours. I think that can be cut down to prednisone 40 mg p.o. daily as currently the patient is not wheezing much. She is tachypneic and tachycardic because she just got off the commode and went to the bed. I think that her tachycardia should improve soon. I would continue supportive care. The patient is going to need CT scan followup with in about 3-6 months to evaluate right lower lobe nodule. Thank you very much for the consultation. I will follow the patient with you. [id number]
== END 2016-10-04 13:23 | disposition home health service (06) | DRG 193 ==
LOC: ED 13:03 → MPS3 16:42
PROVIDERS: ADMIT Internal Medicine; ATTEND Internal Medicine
PROC: 4A033R1 Measurement of Arterial Saturation, Peripheral, Percutaneous Approach (ICD-10-PCS; principal; 2016-09-30)
DX: J18.9 Pneumonia, unspecified organism (principal); J96.01 Acute respiratory failure with hypoxia; I26.99 Other pulmonary embolism without acute cor pulmonale; J44.1 Chronic obstructive pulmonary disease with (acute) exacerbation; S22.20XA Unspecified fracture of sternum, initial encounter for closed fracture; R64 Cachexia; Z68.1 Body mass index [BMI] 19.9 or less, adult; Z23 Encounter for immunization; M81.0 Age-related osteoporosis without current pathological fracture; R62.7 Adult failure to thrive; K21.9 Gastro-esophageal reflux disease without esophagitis; X58.XXXA Exposure to other specified factors, initial encounter; R91.1 Solitary pulmonary nodule; E78.00 Pure hypercholesterolemia, unspecified; I12.9 Hypertensive chronic kidney disease with stage 1 through stage 4 chronic kidney disease, or unspecified chronic kidney disease; N18.9 Chronic kidney disease, unspecified; M48.54XD Collapsed vertebra, not elsewhere classified, thoracic region, subsequent encounter for fracture with routine healing; F41.9 Anxiety disorder, unspecified; Z86.711 Personal history of pulmonary embolism; Z90.710 Acquired absence of both cervix and uterus; Z79.01 Long term (current) use of anticoagulants; Z72.0 Tobacco use; Y92.9 Unspecified place or not applicable
CPT/HCPCS: 36415; 36600; 71010; 71275; 74177; 80048; 80053; 81001; 82803; 82962; 83605; 83735; 84443; 84484; 85007; 85025; 85027; 85610; 85730; 86850; 86900; 86901; 87040; 87070; 87086; 87205; 90471; 90732; 93005; 94640; 94664; 96372; 96374; 96375; 96376; 97162; 99284; 99406; A9698; G0237; J0696; J1940; J1956; J2270; J2405; J2920; J2930; J3490; J7060; J7620